=== PATIENT | female | born 1995 | race Two or more races ===

== ENCOUNTER 2017-11-03 07:44 | Inpatient (IN) | payer MEDICAID ==
[~2017-11-03] VITALS: Ht 165.1 cm; Wt 93.7 kg
[2017-11-03 08:28] LABS: BASOPHIL % 0.5 % (0-2); PLATELET COUNT 268 x10^3mcL (130-400); RED CELL DISTRIBUTION WIDTH 14.4 % (11.5-14.5)
[2017-11-03 08:41] LABS: CALCIUM 8.5 mg/dL (8.5-10.1); CHLORIDE SERUM 105 mmol/L (98-107); CREATININE SERUM 0.5 mg/dL (0.6-1.0); GFR1 > 60 mL/min; GLUCOSE SERUM 112 mg/dL (74-106); SODIUM SERUM 136 mmol/L (136-145)
[2017-11-03 08:45] LABS: ALKALINE PHOSPHATASE 77 U/L (46-116); ALT/SGPT 12 U/L (14-59); AMYLASE 60 U/L (25-115); AST/SGOT 11 U/L (15-37); BILIRUBIN TOTAL 0.25 mg/dL (0.20-1.00); LIPASE 103 IU/L (73-393)
[2017-11-03 08:57] LABS: ALBUMIN 2.8 g/dL (3.4-5.0)
[2017-11-03 12:58] LABS: MAGNESIUM 1.9 mg/dL (1.8-2.4)
[2017-11-03 13:05] LABS: T3 TOTAL 1.84 ng/mL
[2017-11-03 13:09] LABS: FREE T4 1.05 ng/dL (0.76-1.46); FREE THYROXINE INDEX 3.6 ug/dL (1.4-4.5); T4(THYROXINE) 12.7 ug/dL (4.7-13.3)
[2017-11-03 13:41] VITALS: BP 112/56
[2017-11-03 17:26] VITALS: BP 106/60
[2017-11-03 19:20] VITALS: BP 116/52
[2017-11-03 23:57] LABS: UA SPECIFIC GRAVITY 1.025 (1.005-1.035); microscopic required? YES; urine erythrocyte NEGATIVE (NEGATIVE)
[2017-11-04 00:06] LABS: AMPHETAMINE QUAL UR NONE DETECTED (NEG <=1000)
[2017-11-04 05:36] VITALS: BP 106/59
[2017-11-04 06:44] VITALS: Ht 165.1 cm; Wt 93.7 kg
[2017-11-04 07:14] LABS: BASOPHIL % 0.4 % (0-2); PLATELET COUNT 216 x10^3mcL (130-400)
[2017-11-04 07:22] LABS: MAGNESIUM 1.9 mg/dL (1.8-2.4); PHOSPHOROUS 2.5 mg/dL (2.5-4.9)
[2017-11-04 07:32] LABS: CHLORIDE SERUM 105 mmol/L (98-107); CREATININE SERUM 0.4 mg/dL (0.6-1.0); GFR1 > 60 mL/min; GLUCOSE SERUM 95 mg/dL (74-106); POTASSIUM SERUM 3.2 mmol/L (3.5-5.1); RED CELL DISTRIBUTION WIDTH 14.7 % (11.5-14.5); SODIUM SERUM 137 mmol/L (136-145)
[2017-11-04 10:00] VITALS: BP 100/46
[2017-11-04 10:56] VITALS: BP 100/46
[2017-11-04 16:40] VITALS: BP 100/52
== END 2017-11-04 17:45 | disposition left against medical advice (07) | DRG 566 ==
LOC: ED 07:44 → DU 12:00
PROVIDERS: Emergency Medicine; Family Medicine
DX: O21.1 Hyperemesis gravidarum with metabolic disturbance (principal); O23.42 Unspecified infection of urinary tract in pregnancy, second trimester; O25.12 Malnutrition in pregnancy, second trimester; E78.5 Hyperlipidemia, unspecified; R00.0 Tachycardia, unspecified; O99.012 Anemia complicating pregnancy, second trimester; O99.212 Obesity complicating pregnancy, second trimester; Z68.32 Body mass index [BMI] 32.0-32.9, adult; Z3A.17 17 weeks gestation of pregnancy
CPT/HCPCS: 83880; 84439; 87804; 90658; J0696; J2405; J2765; J3490; J7030; Q0092